=== PATIENT | female | born 1955 | race Caucasian/White ===

== ENCOUNTER 2022-11-21 14:01 | Emergency (ER) | payer OTHER, SELFPAY ==
[2022-11-21] VITALS (14 sets, daily range): BP systolic 152–187; BP diastolic 83–102; PULSE 60–78; RESP 13–35; TEMP 36.9; O2SAT 95–99; BMI 30.2
[2022-11-21 14:36] LABS: Add Manual Diff / Slide Review NO; Basophils Absolute Auto 100 /uL (0-100); Basophils Percent Auto 1.1 % (0-2); Eosinophils Absolute Auto 100 /uL (0-450); Eosinophils Percent Auto 1.3 % (2-4); Hematocrit 38.8 % (36-46); Hemoglobin 13.1 g/dL (12.0-16.0); Lymphocytes Absolute Auto 1100 /uL (1100-4500); Lymphocytes Percent Auto 16.8 % (25-40); Mean Corpuscular HGB Conc 33.8 % (30-36); Mean Corpuscular Hemoglobin 29.6 PG (26-34); Mean Corpuscular Volume 87.5 fL (80-100); Monocytes Absolute Auto 400 /uL (0-900); Monocytes Percent Auto 6.7 % (3-14); Neutrophils Absolute Auto 4800 /uL (1500-7000); Neutrophils Percent Auto 74.1 % (50-75); Platelet Count 294 X10^3/uL (150-400); Red Blood Cell Count 4.43 X10^6/uL (4.0-5.2); Red Cell Distribution Width 14.2 % (11.6-14.8); White Blood Cell Count 6.4 X10^3/uL (4.5-11.0)
[2022-11-21 14:49] LABS: Alanine Aminotransferase 17 IU/L (<35); Albumin 4.5 g/dL (3.5-5.0); Albumin Globulin Ratio 1.3 (1.0-2.8); Alkaline Phosphatase 72 U/L (38-126); Aspartate Aminotransferase 25 IU/L (14-36); BUN Creatinine Ratio 14.1 (6-22); Bilirubin Total 0.7 mg/dL (0.2-1.3); Blood Urea Nitrogen 10 mg/dL (7-17); Calcium 10.7 mg/dL (8.4-10.2); Carbon Dioxide 29 mmol/L (22-32); Chloride 104 mmol/L (98-107); Estimated Glomerular Filt Rate > 60 mL/min (>60); Globulin 3.5 g/dL (1.7-4.1); Glucose 106 mg/dL (80-110); HEMOLYSIS < 15 (0-50); Lipase 332 U/L (23-300); Potassium 3.7 mmol/L (3.4-5.1); Sodium 140 mmol/L (137-145)
[2022-11-21] MEDS: ONDANSETRON 4 MG ODT PO (17:44)
--- NOTE | 2022-11-21 18:06 | ED_ITS ---
HPI - Abdominal Pain General Chief Complaint: Abdominal Pain Stated Complaint: PCP ref pancreas- Time Seen by Provider: 11/21/22 18:06 Source: patient Mode of arrival: Ambulatory History of Present Illness HPI narrative: 67-year-old female non-smoker presents with her for evaluation of at least a month of generalized abdominal pain. She states it is worse when she eats and also when she bends over. Reports that she was seen and evaluated by her primary care provider who had ordered some labs and states that based on those labs she was sent here for evaluation of severe pancreatitis based on those labs. She denies any fever or chills. She denies any nausea, vomiting or diarrhea. She denies runny nose, sore throat or cough. Related Data Previous Rx's Medication Instructions Recorded ondansetron 4 mg disintegrating 4 mg PO TID-QID PRN nausea and 11/21/22 tablet vomiting #20 tabs Allergies Allergy/AdvReac Type Severity Reaction Status Date / Time Penicillins Allergy Verified 11/21/22 14:05 Review of Systems Review of Systems Narrative: GENERAL: Denies chills, fatigue, malaise, fever, sweats. HEENT: Denies sinus pain, ear pain, sore throat, difficulty swallowing, dizziness. RESPIRATORY: Denies dyspnea, cough, wheezing, hemoptysis, sputum. CARDIOVASCULAR: Denies chest pain, palpitations, orthopnea, edema, GASTROINTESTINAL: Denies nausea, vomiting, abdominal pain, diarrhea, constipation, melena. : Denies dysuria, frequency, incontinence, hematuria, urinary retention. MUSCULOSKELETAL: denies weakness, joint pain, or bony pain SKIN: Denies rash, skin lesions, or other NEUROLOGIC: Denies weakness, headache, numbness, change in speech, confusion, seizures, incoordination. PSYCHIATRIC: No concerning psychosocial issues. 12 point review of systems is negative except for those stated above Patient History Social History Smoking Status: Never smoker Smoking Status: Never smoker alcohol intake frequency: 0-2 drinks per day Substance Use Type: does not use Exam Narrative Exam Narrative: GENERAL: [67] year old patient appears stated age. Well-developed patient, in mild distress. HEAD: Atraumatic. Normocephalic. EYES: Pupils equal round and reactive. Extraocular motions intact. No scleral icterus. No injection or drainage. ENT: Nose without bleeding, purulent drainage. Throat without erythema, tonsillar hypertrophy or exudate. Airway patent. NECK: Trachea midline. Non tender CARDIOVASCULAR: Regular rate and rhythm without murmurs, gallops, or rubs. RESPIRATORY: Clear to auscultation. Breath sounds equal bilaterally. No wheezes, rales, or rhonchi. GASTROINTESTINAL: Abdomen soft, non-tender, nondistended. EXTREMITIES: No edema or joint tenderness. BACK: Nontender without deformity or crepitance. No flank tenderness. NEURO: AOx3. SKIN: No rash or erythema of visible areas Initial Vital Signs Initial Vital Signs: Vital Signs Temperature 98.5 F 11/21/22 14:05 Pulse Rate 64 11/21/22 14:05 Respiratory Rate 18 11/21/22 14:05 Blood Pressure 187/93 H 11/21/22 14:05 Pulse Oximetry 97 11/21/22 14:05 Oxygen Delivery Method Room Air 11/21/22 14:05 Course Orders Ordered: ED Orders 11/21/22 19:42 CT abdomen pelvis w con Stat Discontinued Medications Ondansetron HCl (Ondansetron 4 Mg Odt) 4 mg PO NOW PRN PRN Reason: Nausea And Vomiting Last Admin: 11/21/22 17:44 Dose: 4 mg Documented By: RB Ondansetron HCl (Ondansetron 4 Mg/2 Ml Inj) 4 mg IV NOW PRN PRN Reason: Nausea And Vomiting Vital Signs Vital signs: Vital Signs - 8 hr 11/21/22 19:03 11/21/22 19:30 11/21/22 20:09 Pulse Rate 61 63 75 Respiratory Rate 35 H 22 Blood Pressure Pulse Oximetry 98 99 96 Oxygen Delivery Method 11/21/22 20:09 11/21/22 20:30 11/21/22 21:00 Pulse Rate 63 64 Respiratory Rate 22 Blood Pressure 184/84 H Pulse Oximetry 96 95 Oxygen Delivery Method Room Air 11/21/22 21:30 11/21/22 22:00 11/21/22 22:17 Pulse Rate 63 60 78 Respiratory Rate 22 13 22 Blood Pressure Pulse Oximetry 95 96 98 Oxygen Delivery Method Room Air 11/21/22 22:30 Pulse Rate Respiratory Rate Blood Pressure 163/87 H Pulse Oximetry Oxygen Delivery Method MDM - Abdominal Pain Lab Data 11/21/22 14:26 11/21/22 14:26 Labs: Lab Results 11/21/22 11/21/22 Range/Units 14:26 14:26 WBC 6.4 (4.5-11.0) X10^3/uL RBC 4.43 (4.0-5.2) X10^6/uL Hgb 13.1 (12.0-16.0) g/dL Hct 38.8 (36-46) % MCV 87.5 (80-100) fL MCH 29.6 (26-34) PG MCHC 33.8 (30-36) % RDW 14.2 (11.6-14.8) % Plt Count 294 (150-400) X10^3/uL Neut % (Auto) 74.1 (50-75) % Lymph % (Auto) 16.8 L (25-40) % [place] % (Auto) 6.7 (3-14) % Eos % (Auto) 1.3 L (2-4) % Baso % (Auto) 1.1 (0-2) % Neut # (Auto) 4800 (3031-7607) /uL Lymph # (Auto) 1100 (3141-1562) /uL [place] # (Auto) 400 (0-900) /uL Eos # (Auto) 100 (0-450) /uL Baso # (Auto) 100 (0-100) /uL Sodium 140 (137-145) mmol/L Potassium 3.7 (3.4-5.1) mmol/L Chloride 104 (98-107) mmol/L Carbon Dioxide 29 (22-32) mmol/L BUN 10 (7-17) mg/dL Creatinine 0.71 (0.52-1.04) mg/dL Estimated GFR > 60 (>60) mL/min BUN/Creatinine Ratio 14.1 (6-22) Glucose 106 (80-110) mg/dL Calcium 10.7 H (8.4-10.2) mg/dL Total Bilirubin 0.7 (0.2-1.3) mg/dL AST 25 (14-36) IU/L ALT 17 (<35) IU/L Alkaline Phosphatase 72 (38-126) U/L Total Protein 8.0 (6.3-8.2) g/dL Albumin 4.5 (3.5-5.0) g/dL Globulin 3.5 (1.7-4.1) g/dL Albumin/Globulin Ratio 1.3 (1.0-2.8) Lipase 332 H (23-300) U/L Point of care testing: Urine Dip Bedside Urine Glucose Negative Bedside Urine Bilirubin - Negative Bedside Urine Ketone - Negative Urine Specific [place] 1.015 Bedside Urine Occult Blood - Negative Bedside Urine pH 6.0 Bedside Urine Protein - Negative Bedside Urine Urobilinogen - Negative Bedside Urine Nitrite - Negative Bedside Urine Leukocytes +/- 15 Esterase MDM Narrative Medical decision making narrative: CC: 67-year-old female with at least a month of epigastric pain, occasional vomiting with eating Complicating co-morbidities: Age Data collected from: Patient Medical records reviewed: Prior notes reviewed in our EMR Differential considered, but not limited to: Pancreatitis versus liver disease versus esophageal spasm versus ulcer versus gastritis versus bowel obstruction versus other Exam documented above, pertinent findings include: Moist mucous membranes, heart rate regular, lungs clear, mild epigastric tenderness, no rebound, bowel sounds present Lab Test results independently reviewed as above. Pertinent findings: No leukocytosis or left shift, electrolytes and LFTs within normal, lipase only sl ightly elevated at 332. Independently reviewed EKG as above Imaging studies independently reviewed: CT shows concerning mass at antrum of stomach for possible gastric lymphoma Consultations: discussed with Dr. Teresa (Gen Surg) recommends close follow up for EGD/biopsy and tissue diagnosis Treatments: Zofran and saline Re-evaluations: Improved symptoms Discussion: Patient with epigastric pain and episodes of vomiting sent by PCP for further evaluation and concern for pancreatitis versus other. Labs are very reassuring, pain is well controlled, she is tolerating orals shows no signs of sepsis or dehydration. Imaging concerning for possible gastric lymphoma. Lengthy discussion with patient regarding the need for close follow-up, use of her primary care provider for referral but she is given contact information for our general surgeons to close the loop. Return precautions include but not limited to increasing pain, vomiting, difficulty tolerating orals versus other Disposition: see below, along with detailed discharge instructions that have been reviewed with patient as well as indications for ED re-evaluation and additional outpatient follow up Discharge Plan Departure Patient Disposition: Home Clinical Impression: Gastric mass Instructions: DI for Gastric Outlet Obstruction Activity Restrictions/Additional Instructions: *You have been diagnosed with [abdominal pain due to what appears to be a mass in your stomach] * *What to do: *Please continue to take your regular medications as directed. [x ] New medication prescriptions sent to your pharmacy: [[facility] in [place]] *Please follow up with your primary care provider in 2-3 days, call for an appointment. Let them know you were seen in the Emergency Department and that we ask that you be seen in follow up. We will electronically transmit a record of today's note if your PCP is in our system. The results of the CT suggest that there is a concerning mass in your stomach and the next reasonable step would be to pursue consultation with a armature bander or general surgeon who could perform an endoscopy to obtain a tissue sample which will help more officially make a diagnosis so a plan moving forward can be obtained *Please consider a clear liquid diet for the next 24-48 hours and then slowly advance to regular as tolerated. Also, try to avoid alcohol, nicotine, caffeine, spicy, acidic or fatty foods as this may worsen your symptoms *If you do not have a primary care provider please contact the [facility] Resource line at [phone]. They will ask some questions about your medical history and help get you set up with a doctor in the community. *Return to Emergency Department if you should have any new, worsening or concerning symptoms, such as [fever greater than 101 F, shaking chills, worsening pain, persistent vomiting or other bothersome symptoms] Prescriptions: New ondansetron 4 mg tablet,disintegrating 4 mg PO TID-QID PRN (Reason: nausea and vomiting) Qty: 20 0RF Stand Alone Forms: Patient Portal/API
--- NOTE | 2022-11-21 19:42 | DI.CT.S_ITS ---
PROCEDURE: CT ABDOMEN PELVIS W CON INDICATIONS: severe abdominal pain, sent by PCP TECHNIQUE: After the administration of intravenous contrast, axial sections acquired from the lung bases to the pubic symphysis. Coronal and sagittal reformats were performed. For radiation dose reduction, the following was used: automated exposure control, adjustment of mA and/or kV according to patient size. COMPARISON: None. FINDINGS: Image quality: Excellent. Lung bases: Unremarkable. Heart: No significant findings. Pacemaker leads in place. ABDOMEN: Liver: Unremarkable. Gallbladder: Previously resected Biliary ducts: Unremarkable. Pancreas: Unremarkable. Spleen: Unremarkable. Adrenal Glands: Unremarkable. Kidneys and Ureters: Unremarkable. Stomach and Bowel: Small bowel loops and colon are unremarkable. The stomach, however, is prominently abnormal with mural thickening involving the gastric cardia and upper body, tapering to a more normal thickness at the gastric antrum origin and from that point distally the gastric wall is normal in thickness. The maximal thickness identified is up to 6.1 cm. Peritoneum: No abnormal intraperitoneal fluid. No free air. Ventral Wall: No hernias. Abdominal Nodes: No retroperitoneal or mesenteric adenopathy by size criteria. Vessels: Aorta and inferior vena cava are normal in size. PELVIS: Pelvic Organs: Unremarkable. Bladder: Unremarkable. Pelvic Nodes: No enlarged lymph nodes. Miscellaneous: No hernias are seen. Bones: Unremarkable. IMPRESSION: Prominent abnormality involves the gastric cardia and antrum comprised of homogeneous mural thickening up to 6.1 cm, with the more distal gastric wall tapering to a normal thickness at the gastric antrum. Adenopathy is not associated. 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 No sign of intestinal obstruction or perforation. Pacemaker leads seen superimposed on the lower heart. Prior cholecystectomy. Dictated by: Franklin Law M.D. on 11/21/2022 at 20:23 Approved by: Franklin Law M.D. on 11/21/2022 at 20:28
== END 2022-11-21 22:36 | disposition home or self-care (01) ==
PROVIDERS: Emergency Medicine; Emergency Provider Emergency Medicine
DX: K31.89 Other diseases of stomach and duodenum (principal)
CPT/HCPCS: 36415; 74177; 80053; 81003; 83690; 85025; 93005; 99283; 99284; Q9967

== ENCOUNTER → 2024-04-12 10:30 | Outpatient (CLI) | payer OTHER, SELFPAY ==
--- NOTE | 2024-04-12 10:38 | DI.RAD.S_ITS ---
PROCEDURE: XR LUMBAR SPINE 2-3V INDICATIONS: BACK PAIN TECHNIQUE: 3 views of the lumbar spine were acquired. COMPARISON: None. FINDINGS: Bones: 5 [id number] vertebrae are present. Small vertebral body osteophytes. There is normal bony alignment. No vertebral body compression fractures. No suspicious bony lesions. Soft tissues: Overlying bowel gas pattern is normal. No suspicious soft tissue calcifications. Pacemaker leads. Cholecystectomy clips. IMPRESSION: No acute bony abnormality. Mild degenerative changes. Dictated by: Howie Hedrick M.D. on 04/13/2024 at 0:49 Approved by: Howie Hedrick M.D. on 04/13/2024 at 0:50
--- NOTE | 2024-04-12 10:39 | DI.RAD.S_ITS ---
PROCEDURE: XR CERVICAL SPINE 2V OR 3V INDICATIONS: NECK PAIN TECHNIQUE: 3 view(s) of the cervical spine were acquired. COMPARISON: [facility], CR, XR CERVICAL SPINE 2 OR 3 VIEWS, 07/03/2019, 10:28. FINDINGS: Bones: No fractures or dislocations to the T1 level. Severe degenerative changes at C4-C5 and C5-C6. This is demonstrable by bridging vertebral body osteophytes, endplate sclerosis, and disc space height loss. Uncovertebral joint hypertrophy. The lateral masses of C1 appear intact on the odontoid view. No suspicious bony lesions. Soft tissues: No prevertebral soft tissue swelling. Left pacemaker. IMPRESSION: Advanced degenerative changes in the cervical spine most pronounced C4-C5 and C5-C6. Progressed compared to 2019. Dictated by: Howie Hedrick M.D. on 04/13/2024 at 0:51 Approved by: Howie Hedrick M.D. on 04/13/2024 at 0:58
== END ==
PROVIDERS: PCP Nurse Practitioner; Referring Provider Nurse Practitioner; Visit Provider Nurse Practitioner
DX: M47.22 Other spondylosis with radiculopathy, cervical region (principal); M47.816 Spondylosis without myelopathy or radiculopathy, lumbar region; M54.50 Low back pain, unspecified; M41.9 Scoliosis, unspecified; G89.29 Other chronic pain
CPT/HCPCS: 72040; 72100

== ENCOUNTER → 2024-04-18 10:36 | Outpatient (CLI) | payer OTHER, SELFPAY ==
--- NOTE | 2024-04-18 10:40 | DI.RAD.S_ITS ---
PROCEDURE: XR LUMBAR SPINE 2-3V INDICATIONS: low back pain, contusion of right shoulder, neck pain TECHNIQUE: 3 views of the lumbar spine were acquired. COMPARISON: [facility], , XR LUMBAR SPINE 2-3V, 04/12/2024, 10:49. FINDINGS: Lumbar spine curvature and alignment: Normal. Bones: There are no osseous abnormalities. Disc spaces: Moderate L4-5 and L5-S1 degenerative disc and facet disease noted. Soft tissues: No soft tissue swelling, calcification or mass. IMPRESSION: Degeneration Dictated by: Tomi Cadet M.D. on 04/19/2024 at 9:34 Approved by: Tomi Cadet M.D. on 04/19/2024 at 9:35
--- NOTE | 2024-04-18 10:40 | DI.RAD.S_ITS ---
PROCEDURE: XR CERVICAL SPINE 2V OR 3V INDICATIONS: low back pain, contusion of right shoulder, neck pain TECHNIQUE: Three views of the cervical spine were acquired. COMPARISON: [facility], CR, XR CERVICAL SPINE 2V OR 3V, 04/12/2024, 10:49. FINDINGS: Cervical spine curvature and alignment: Normal. Bones: There are no osseous abnormalities. Disc spaces: Mild C3-4, C4-5, C5-6 and moderate C6-7 degenerative disc disease noted. There are prominent anterior marginal osteophytes at C3-4 C4-5 and C5-6. Moderate C2-3 C3-4 and mild C4-5 C5-6 and C6-7 degenerative facet disease noted. Soft tissues: No soft tissue swelling, calcification or mass. IMPRESSION: Degeneration Dictated by: Tomi Cadet M.D. on 04/19/2024 at 9:28 Approved by: Tomi Cadet M.D. on 04/19/2024 at 9:31
--- NOTE | 2024-04-18 10:40 | DI.RAD.S_ITS ---
PROCEDURE: XR SHOULDER RT MIN 2V INDICATIONS: low back pain, contusion of right shoulder, neck pain TECHNIQUE: Three views of the right shoulder were acquired. COMPARISON: None. FINDINGS: Bones: There are no osseous abnormalities. Acromioclavicular and glenohumeral joints: Mild acromioclavicular and glenohumeral degeneration appreciated. Soft tissues: No soft tissue swelling, calcification or mass. IMPRESSION: Mild degeneration. Dictated by: Tomi Cadet M.D. on 04/19/2024 at 9:35 Approved by: Tomi Cadet M.D. on 04/19/2024 at 9:36
== END ==
LOC: RAD 10:37
PROVIDERS: PCP Nurse Practitioner; Referring Provider Nurse Practitioner; Visit Provider Nurse Practitioner
DX: S40.011A Contusion of right shoulder, initial encounter (principal); M19.011 Primary osteoarthritis, right shoulder; M47.22 Other spondylosis with radiculopathy, cervical region; M50.11 Cervical disc disorder with radiculopathy, high cervical region; M51.360 Other intervertebral disc degeneration, lumbar region with discogenic back pain only; M51.370 Other intervertebral disc degeneration, lumbosacral region with discogenic back pain only; M47.816 Spondylosis without myelopathy or radiculopathy, lumbar region; M47.817 Spondylosis without myelopathy or radiculopathy, lumbosacral region; M41.9 Scoliosis, unspecified; G89.29 Other chronic pain; W19.XXXA Unspecified fall, initial encounter
CPT/HCPCS: 72040; 72100; 73030

== ENCOUNTER → 2024-05-05 13:54 | Outpatient (CLI) | payer OTHER, SELFPAY ==
--- NOTE | 2024-05-05 13:56 | DI.CT.S_ITS ---
PROCEDURE: CT CERVICAL SPINE WO CON INDICATIONS: spondylosis, radiculopathy TECHNIQUE: Noncontrast 3 mm thick sections acquired from the skull base to the T4 level. Sagittal and coronal reformats were then constructed. For radiation dose reduction, the following was used: automated exposure control, adjustment of mA and/or kV according to patient size. COMPARISON: [facility], CR, XR CERVICAL SPINE 2V OR 3V, 04/18/2024, 10:58. FINDINGS: Image quality: Excellent. Bones: No fractures or dislocations. Straightening of the normal cervical lordosis. Multilevel degenerative changes with disc height loss, osteophytosis, facet and uncovertebral arthropathy. Mild multilevel osseous central canal stenosis, most pronounced at C6-C7. Multilevel neural foraminal stenosis. Moderate on the left at C2-C3, severe on the right at C3-C4, moderate to severe on the right at C4-C5, moderate bilateral at C5-C6, severe right and moderate left at C6-C7. Visualized superior ribs are intact. Soft tissues: Prevertebral soft tissues are normal in thickness. No paravertebral hematomas. No apical pneumothoraces. Partially visualized left chest wall pacemaker leads. IMPRESSION: Multilevel degenerative changes of the cervical spine as described above, most pronounced at C6-C7. Dictated by: Jonah Armendariz M.D. on 05/05/2024 at 16:41 Approved by: Jonah Armendariz M.D. on 05/05/2024 at 16:44
== END ==
PROVIDERS: PCP Nurse Practitioner; Referring Provider Nurse Practitioner; Visit Provider Nurse Practitioner
DX: M47.22 Other spondylosis with radiculopathy, cervical region (principal)
CPT/HCPCS: 72125

== ENCOUNTER 2024-10-05 13:58 | Emergency (ER) | payer OTHER, SELFPAY ==
[2024-10-05 14:11] VITALS: BP 135/92; PULSE 63; RESP 17; TEMP 36.1; O2SAT 99; BMI 28.7
[2024-10-05 15:28] LABS: Add Manual Diff / Slide Review NO; Hematocrit 39.4 % (36-46); Hemoglobin 13.3 g/dL (12.0-16.0); Lymphocytes Absolute Auto 400 /uL (1100-4500); Mean Corpuscular HGB Conc 33.7 % (30-36); Mean Corpuscular Hemoglobin 30.6 PG (26-34); Mean Corpuscular Volume 90.9 fL (80-100); Platelet Count 174 X10^3/uL (150-400)
[2024-10-05 15:45] LABS: Alanine Aminotransferase 30 IU/L (<35); Albumin 4.7 g/dL (3.5-5.0); Albumin Globulin Ratio 1.4 (1.0-2.8); Alkaline Phosphatase 92 U/L (38-126); Blood Urea Nitrogen 15 mg/dL (7-17); Calcium 9.7 mg/dL (8.4-10.2); Carbon Dioxide 24 mmol/L (22-32); Chloride 98 mmol/L (98-107); Estimated Glomerular Filt Rate 47 mL/min (>60); Globulin 3.3 g/dL (1.7-4.1); Glucose 109 mg/dL (70-99); HEMOLYSIS < 15 (0-50); Potassium 3.1 mmol/L (3.4-5.1); Sodium 133 mmol/L (137-145); Total Protein 8.0 g/dL (6.3-8.2)
[2024-10-05 20:04] VITALS: BP 150/101; PULSE 74; RESP 20; O2SAT 97
== END 2024-10-05 20:10 | disposition left against medical advice (07) ==
PROVIDERS: Emergency Medicine; Emergency Provider Emergency Medicine; PCP Nurse Practitioner
DX: K31.89 Other diseases of stomach and duodenum (principal)
CPT/HCPCS: 36415; 80053; 85025; 99283

== ENCOUNTER → 2025-03-13 18:08 | Outpatient (ROUT) | payer OTHER, SELFPAY | PROVIDERS: PCP Nurse Practitioner; Visit Provider Dermatology | DX: L03.90 Cellulitis, unspecified (principal); L02.91 Cutaneous abscess, unspecified | CPT/HCPCS: 87070; 87075; 87205 ==